=== PATIENT | female | born 1950 | race Caucasian/White ===

== ENCOUNTER → 2017-04-16 | Outpatient (CLI) | payer OTHER ==
[~2017-04-16] MED LIST: ALEVE 220MG220 MG PO; ALLEGRA ALLERG180 MG PO; ASPI325T6 PO; CELEBREX 200MG200 MG PO; EPA FISH OIL1000 MG PO; FERROUS SU325 MG/TAB PO; FLEXERIL 1010 MG/TAB PO; FLEXERIL5 MG PO; MULTI VITAMINS1 TAB PO; NAPROSYN500 MG PO; NORCO 325 MG-51 TAB PO; NORCO 325 MG-7.1 TAB PO; PERCOCET 325 MG1 TA2 PO; TOPROL XL100 MG PO; ULTRAM 50MG TAB50 MG PO; VIT B
== END ==
LOC: MC.RAD 10:22
DX: Z12.31 Encounter for screening mammogram for malignant neoplasm of breast (principal)

== ENCOUNTER 2019-04-15 15:54 | Emergency (ER) | payer MEDICARE, OTHER ==
[~2019-04-15] VITALS: Ht 160 cm; Wt 90.9 kg
[2019-04-15 16:16] VITALS: BP 127/85; PULSE 89; TEMP 97.5
== END 2019-04-15 18:51 | disposition home or self-care (01) ==
LOC: COL.ER 15:54
DX: S63.501A Unspecified sprain of right wrist, initial encounter (principal); I10 Essential (primary) hypertension; Z79.82 Long term (current) use of aspirin; W01.0XXA Fall on same level from slipping, tripping and stumbling without subsequent striking against object, initial encounter; Y99.0 Civilian activity done for income or pay

== ENCOUNTER → 2019-05-18 | Outpatient (CLI) | payer MEDICARE, OTHER | LOC: MC.RAD 15:12 | DX: Z12.31 Encounter for screening mammogram for malignant neoplasm of breast (principal) ==

== ENCOUNTER 2023-03-25 05:19 | Emergency (ER) | payer MEDICARE, OTHER ==
[~2023-03-25] VITALS: Ht 160 cm; Wt 90.9 kg
[2023-03-25 07:03] VITALS: BP 138/77; PULSE 69; TEMP 97.5
== END 2023-03-25 07:04 | disposition home or self-care (01) ==
LOC: COL.ER 05:19
DX: M54.50 Low back pain, unspecified (principal); G89.29 Other chronic pain

== ENCOUNTER → 2024-01-07 | Outpatient (CLI) | payer MEDICARE, OTHER | LOC: COL.RAD 14:32 | DX: I82.442 Acute embolism and thrombosis of left tibial vein (principal) ==